=== PATIENT | female | born 1985 | race Caucasian/White ===

== ENCOUNTER 2016-11-11 16:52 | Emergency (ER) | payer BC ==
[2016-11-11] MEDS ORDERED: Tetan/Diph/Pertus SYR(Tdap)* 0.5 ML SYR(BOOSTRIX) use SYR IM ONE (17:27)
[2016-11-11 17:29] VITALS: BP 117/69
--- NOTE | 2016-11-11 17:33 | UC ---
Laceration HPI - HPI Summary HPI Summary: 4 days ago walked into fence post cutting groin/labia area. It is still sore and swollen, pt is concerned about infection and wondering if she should be doing anything else to take care of it. - History Of Current Complaint Stated Complaint: LACERATION Time Seen by Provider: 11/11/16 17:23 Hx Obtained From: Patient Mechanism Of Injury: Sharp Trauma Onset/Duration: Sudden Onset Severity: Moderate - Allergies/Home Medications Allergies/Adverse Reactions: Allergies Allergy/AdvReac Type Severity Reaction Status Date / Time No Known Allergies Allergy Verified 11/11/16 17:25 Home Medications: Home Medications NK [No Home Medications Reported] 11/11/16 [History Confirmed 11/11/16] PMH/Surg Hx/FS Hx/Imm Hx Previously Healthy: Yes - Family History Known Family History: Positive: Hypertension - Social History Lives: Alone Alcohol Use: Weekly Substance Use Type: None Smoking Status (MU): Current Some Day Smoker Review of Systems Constitutional: Negative Skin: Bruising - on genitals, Other - laceration to genitals Eyes: Negative ENT: Negative Respiratory: Negative Cardiovascular: Negative Gastrointestinal: Negative Genitourinary: Negative Motor: Negative Neurovascular: Negative Musculoskeletal: Negative Neurological: Negative Psychological: Negative All Other Systems Reviewed And Are Negative: Yes Physical Exam Triage Information Reviewed: Yes Appearance: Well-Appearing, No Pain Distress, Well-Nourished Vital Signs Reviewed: Yes Eye Exam: Normal Eyes: Positive: Conjunctiva Clear ENT Exam: Normal ENT: Positive: Normal ENT inspection, Hearing grossly normal, Pharynx normal, TMs normal Dental Exam: Normal Neck exam: Normal Neck: Positive: Supple, Nontender, No Lymphadenopathy Respiratory Exam: Normal Respiratory: Positive: Chest non-tender, Lungs clear, Normal breath sounds, No respiratory distress, No accessory muscle use Cardiovascular Exam: Normal Cardiovascular: Positive: RRR, No Murmur Musculoskeletal Exam: Normal Neurological Exam: Normal Neurological: Positive: Alert Psychological Exam: Normal Skin Exam: Other - marked ecchymosis and hematoma on clitoris and L internal & external labia. 3mm lac to R labia minora, no active bleeding, no erythema or tenderness. Tender on symphesis pubis. Laceration Course/Dx - Differential Dx - Laceration/Wound Provider Diagnoses: L vulvar hematoma. clitoral hematoma. small nonsutured laceration to R labia minora Discharge - Discharge Plan Condition: Stable Disposition: HOME Patient Education Materials: Hematoma (ED) Referrals: Cesar Echavarria MD [Medical Doctor] - If Needed Additional Instructions: As we discussed, these injuries are almost always best left to heal on their own. It can take weeks for swelling and tenderness to go away, but if you have any sudden increase in the swelling or pain, please get seen again (here or with a stone belt sander).
== END 2016-11-11 17:58 | disposition home or self-care (01) ==
LOC: UCEAST 16:52
DX: S30.23XA Contusion of vagina and vulva, initial encounter (principal); S31.41XA Laceration without foreign body of vagina and vulva, initial encounter; W22.09XA Striking against other stationary object, initial encounter; Y93.9 Activity, unspecified; Y92.9 Unspecified place or not applicable; Z23 Encounter for immunization; Z72.0 Tobacco use
CPT/HCPCS: 90471; 90715; 99201; G0463